=== PATIENT | female | born 1975 | race Caucasian/White ===

== ENCOUNTER 2020-05-11 14:19 | Outpatient (CLI) | payer BC, SELFPAY ==
--- NOTE | ~2020-05-11 | CT_ITS ---
EXAMINATION: CT abdomen pelvis wo/w con DATE: 05/11/2020 15:06 INDICATION: Gross hematuria TECHNIQUE: Computed tomography (CT) of the abdomen and pelvis was performed with and without 130 cc O mnipaque 350 intravenous contrast. The dose-length product was 1332.62 mGy-cm. Automated exposure con trol and iterative reconstruction technique were employed. COMPARISON: None. FINDINGS: Lung bases are unremarkable. No significant pleural or pericardial effusion. Heart size is normal. There are surgical changes of gastric bypass. No renal/ureteral stones are identified. No hyd ronephrosis. Ureters are normal in course and caliber. The liver, spleen, pancreas, adrenal glands and left kidney are unremarkable. There is a small subcen timeter hypodensity of the right kidney, most likely benign cysts. Gallbladder is distended. Nonobstr uctive bowel gas pattern. No abnormal pelvic masses or fluid collections. There are several pelvic ph leboliths. No free air or free fluid. No acute osseous abnormality. No osteolytic or osteoblastic les ions. IMPRESSION: 1. No findings to account for hematuria. No acute abdominal abnormality. Reviewed, dictated and finalized at location A.
== END 2020-05-11 14:20 | disposition home or self-care (01) ==
PROVIDERS: Visit Provider Urology
DX: R31.0 Gross hematuria (principal)
CPT/HCPCS: 74178; Q9967

== ENCOUNTER 2021-04-06 15:45 | Inpatient (IN) | payer OTHER, SELFPAY ==
[2021-04-06] VITALS (7 sets, daily range): BP systolic 97–116; BP diastolic 53–78; PULSE 73–112; RESP 16–18; TEMP 36.1–36.7; O2SAT 100; BMI 25.6
[2021-04-06 16:04] LABS: Basophils Percent Auto 0.6 % (0.2-1.2); Eosinophils Absolute Auto 0.1 K/mm3 (0-0.3); Eosinophils Percent Auto 1.4 % (0-4.4); Hematocrit 32.4 % (37.0-47.0); Hemoglobin 10.5 g/dL (12.0-15.0); Immature Granulocyte Absolute 0.01 K/mm3 (0.00-0.031); Immature Granulocyte Percent A 0.2 % (0-0.5); Lymphocytes Absolute Auto 2.71 K/mm3 (0.9-3.2); Lymphocytes Percent Auto 42.1 % (18.3-44.2); Mean Corpuscular HGB Conc 32.4 g/dl (32-36); Mean Corpuscular Hemoglobin 30.3 pg (26-34); Mean Corpuscular Volume 93.4 fl (80-100); Mean Platelet Volume 9.8 fl (7.4-10.4); Monocytes Absolute Auto 0.2 K/mm3 (0.1-0.6); Monocytes Percent Auto 3.3 % (2.6-8.5); Neutrophils Absolute Auto 3.4 K/mm3 (1.3-6.7); Neutrophils Percent Auto 52.4 % (45.5-73.1); Platelet Count Result 267 k/mm3 (150-375); Red Blood Count 3.47 M/mm3 (4.2-5.4); Red Cell Distribution Width 12.5 % (11.5-14.5); White Blood Count 6.4 K/mm3 (4.5-10.0)
[2021-04-06 16:14] LABS: INR 0.9; Prothrombin Time 12.9 Seconds (11.1-14.7)
[2021-04-06 16:15] LABS: Partial Thromboplastin Time 25.4 SECONDS (22.3-36.8)
[2021-04-06 16:49] LABS: Alanine Aminotransferase 28 U/L (4-35); Albumin Level 3.9 g/dL (3.5-5.1); Alkaline Phosphatase 60 U/L (38-126); Anion Gap 10 mmol/L (8-16); Aspartate Amino Transferase 25 U/L (14-36); Bilirubin,Total 0.1 mg/dL (0.2-1.3); Blood Urea Nitrogen 38 mg/dL (7-17); Calcium 9.2 mg/dL (8.4-10.2); Carbon Dioxide 21 mmol/L (22-30); Chloride 109 mmol/L (98-107); Estimated CRCL calculation 70 ml/min; Estimated Glomerular Filt Rate > 60; Glucose 109 mg/dL (65-105); Sodium 140 mmol/L (137-145)
[2021-04-06] MEDS: LACTATED RINGERS 1,000 ML 999 ML IV CONT (18:58)
[2021-04-06 19:35] LABS: Basophils Absolute Auto 0.1 K/mm3 (0.0-0.1); Basophils Percent Auto 0.9 % (0.2-1.2); Eosinophils Absolute Auto 0.1 K/mm3 (0-0.3); Eosinophils Percent Auto 1.7 % (0-4.4); Hemoglobin 9.4 g/dL (12.0-15.0); Immature Granulocyte Absolute 0.01 K/mm3 (0.00-0.031); Immature Granulocyte Percent A 0.2 % (0-0.5); Lymphocytes Absolute Auto 2.76 K/mm3 (0.9-3.2); Lymphocytes Percent Auto 47.3 % (18.3-44.2); Mean Corpuscular HGB Conc 32.4 g/dl (32-36); Mean Corpuscular Hemoglobin 30.3 pg (26-34); Mean Corpuscular Volume 93.5 fl (80-100); Mean Platelet Volume 9.9 fl (7.4-10.4); Monocytes Absolute Auto 0.3 K/mm3 (0.1-0.6); Neutrophils Absolute Auto 2.6 K/mm3 (1.3-6.7); Neutrophils Percent Auto 44.9 % (45.5-73.1); Platelet Count Result 226 k/mm3 (150-375); Red Cell Distribution Width 12.3 % (11.5-14.5); White Blood Count 5.8 K/mm3 (4.5-10.0)
--- NOTE | 2021-04-06 20:13 | ED.GIBLEED ---
HPI - GI Bleed General Chief complaint: GI Bleed Stated complaint: dark tarry stools Time Seen by Provider: 04/06/21 17:53 Source: patient Mode of arrival: ambulatory Limitations: no limitations History of Present Illness HPI Narrative: 46-year-old female Patient complains of dark tarry stools for about 3 days There were clots in one of them She does not have abdominal pain, she does not have diarrhea or constipation She has no history of peptic ulcer disease but she has had a gastric sleeve operation at [place] 2 years ago She does not take NSAIDs, she does not smoke, she did just get back from a wine drinking bike trip through [facility] Related Data Home Medications Medication Instructions Recorded Confirmed duloxetine 90 mg PO DAILY 04/06/21 lamotrigine [Lamictal] 100 mg PO DAILY 04/06/21 lisdexamfetamine [Vyvanse] 70 mg PO BID 04/06/21 topiramate [Topamax] 200 mg PO DAILY 04/06/21 Allergies Allergy/AdvReac Type Severity Reaction Status Date / Time No Known Allergies Allergy Verified 04/06/21 18:18 Review of Systems Review of Systems: All systems reviewed & are unremarkable except as noted in HPI and below Constitutional: Constitutional: Reports no additional constitutional complaints, Denies chills, Denies fever(s) and Denies headache(s) Eyes: Eyes: Reports no additional eye complaints and Denies change in vision ENT: Reports dizziness, Denies headache(s) and Denies sore throat Cardiovascular: Cardiovascular: Denies chest pain and Denies dyspnea Respiratory: Respiratory: Denies cough and Denies dyspnea Gastrointestinal: Gastrointestinal: Denies abdominal pain, Denies diarrhea and Denies vomiting Genitourinary: Genitourinary: Denies urinary frequency and Denies dysuria Musculoskeletal: Musculoskeletal: Denies deformity, Denies arthralgias, Denies joint swelling and Denies numbness Integumentary/Breasts: Skin/Breast: Denies rash and Denies wounds Neurologic: Denies headache(s), Denies focal weakness and Denies numbness Psychiatric: Psychiatric: Reports no additional psychiatric complaints Endocrine: Endocrine: Reports no additional endocrine complaints Hematologic/Lymphatic: Hematologic/Lymphatic: Reports no additional hematologic/lymphatic complaints Allergic/Immunologic: Allergic/Immunologic: Reports no additional allergic/immunologic complaints Exam Const: General: cooperative, no acute distress and alert Orientation/consciousness: patient oriented x3 (alert) HENMT: Head: normal to inspection, normocephalic and atraumatic Ears: external ears normal General nose exam: no epistaxis Eyes: Conjunctivae: conjunctivae normal EOM: EOMs intact bilaterally Neck: Neck: normal visual inspection, supple and no JVD Resp: Effort & Inspection: normal respiratory effort Auscultation: clear to auscultation bilaterally and other (BS =) Cardio: Rate: regular rate Rhythm: regular rhythm Heart sounds: no murmurs GI: GI Palp: Yes Soft to palpation, Yes Tenderness to palpation present (GI) (She has some slight periumbilical tenderness), No Guarding due to palpation present (GI), No Rigid due to palpation and No Rebound tenderness present Other: Dark black guaiac positive stool : General: Yes no CVA tenderness Skin: General skin exam: normal color and no rashes or lesions noted Neuro: General: patient oriented x3 (alert) and moves all extremities Speech: normal speech Extrem: General: normal to inspection and no pedal edema Psych: Affect: normal affect Course Course Emergency Course: She was slightly orthostatic, after hydration her hematocrit dropped from 32-29, start PPIs, type and screen, discussed with hospitalist with GI Vital Signs Vital signs: Vital Signs Pulse Rate 94 04/06/21 15:48 Blood Pressure 110/71 04/06/21 15:48 Temperature 36.4 C L 04/06/21 17:57 Pulse Rate 112 H 04/06/21 18:04 Respiratory Rate 17 04/06/21 17:57 Blood Pressure 97/62 L
[2021-04-06] MEDS: PANTOPRAZOLE SODIUM IV 40 MG VIAL 80 MG IV PUSH (21:10)
--- NOTE | 2021-04-06 21:22 | ADMGEN ---
This patient, Clarice Patton, was admitted to Medical Room 246-. Patient/family oriented to hospital policies and general routines including ID bracelet, bed and alarms, visiting hours, pain management, procedures, bathroom and other care routines, personal items, smoking policy, room service/diet, and visiting hours. Information on how to activate the Rapid Response Team has been discussed. Patient/Family are encouraged to report perceived risks to care and to ask questions if they do not understand what they are told or what they should do.
[2021-04-06] MEDS: SODIUM CHLORIDE 0.9% IV 1,000 ML 125 ML IV CONT (22:06)
[2021-04-07] VITALS (8 sets, daily range): BP systolic 90–101; BP diastolic 55–72; PULSE 65–75; RESP 11–20; TEMP 36.1–36.3; O2SAT 98–100
--- NOTE | 2021-04-07 00:22 | PM.IMHP ---
H&P: HPI History of Present Illness Date/Time: 04/06/21 [id number] this is a 46-year-old female patient has a history of having a gastric sleeve which was later removed due to gastritis. She then had a gastric bypass at [facility] in the past not recently. The patient stated that she has noticed dark black stools for the last day. She stated that she has never had this before. She tells me that she has never had scopes before either. She has had GERD and gastritis in the past. The patient has not been taking any NSAIDs. The patient stated that she does not drink excessively and that her last drink was on Saturday. She does occasionally drink wine. She drinks wine 1-2 days a week. Patient recently attended a [employer] event. Her initial hemoglobin was noted to be 10.5 and now it is 9.4. Her hematocrit was 32.4 and is now 29.0. I was aware that the patient had a gastric sleeve but was not aware that she had a gastric bypass. I explained that the patient needed to be consulted by GI since she has a GI bleed and is had these previous procedures. The consult was placed in the emergency room. The patient was made NPO except for ice chips and was placed on a Protonix drip and IV fluids. The patient stated that she has not had any further stool since she was admitted. The patient is being admitted to inpatient services on the date of service of 04/06/2021. Chief Complaint: Dark stool Review of Systems Review of Systems: All systems reviewed & are unremarkable except as noted in HPI and below Constitutional: Constitutional: Reports as per HPI and Reports no additional constitutional complaints Eyes: Eyes: Reports as per HPI and Reports no additional eye complaints ENT: Reports system reviewed and no additional complaints, except as documented and Reports Normal hearing present Cardiovascular: Cardiovascular: Reports no additional cardiovascular complaints Respiratory: Respiratory: Reports no additional respiratory complaints and Reports no additional respiratory complaints Gastrointestinal: Gastrointestinal: Reports as per HPI and Reports no additional gastrointestinal complaints Musculoskeletal: Musculoskeletal: Reports no additional musculoskeletal complaints Integumentary/Breasts: Skin/Breast: Reports system reviewed and no additional complaints, except as docu and Reports as per HPI Neurologic: Reports system reviewed and no additional complaints, except as documented, Reports as per HPI and Reports Normal hearing present Psychiatric: Psychiatric: Reports no additional psychiatric complaints and Reports as per HPI Endocrine: Endocrine: Reports no additional endocrine complaints Hematologic/Lymphatic: Hematologic/Lymphatic: Reports no additional hematologic/lymphatic complaints Allergic/Immunologic: Allergic/Immunologic: Reports no additional allergic/immunologic complaints [facility] Past Medical History Medical History (Updated 04/07/21 @ 00:29 by Leesa Epps NP) Depression Eating disorder Binge eating Surgical History Surgical History (Updated 04/07/21 @ 00:29 by Leesa Epps NP) H/O gastric bypass After having complications from a gastric sleeve History of partial hysterectomy Family History Family History Mother Cerebrovascular accident Diabetes mellitus Hypertension Father Prostate carcinoma Sibling Gout Social History Social History (Updated 04/07/21 @ 00:34 by Leesa Epps NP) Social History: The patient lives with her who is the durable power civil attorney for healthcare. The patient is a full code. The patient has 4 children. She works as a mental health therapist. She occasionally drinks wine maybe once or twice a week. She is a lifelong nonsmoker. Smoking status: Never smoker Alcohol intake: never Substance use: never Gender identity (if verbalized by the patient): Female Spiritual care concerns: No
[2021-04-07 03:23] LABS: Hematocrit 26.3 % (37.0-47.0); Hemoglobin 8.7 g/dL (12.0-15.0)
[2021-04-07 03:35] LABS: Alanine Aminotransferase 21 U/L (4-35); Albumin Level 2.8 g/dL (3.5-5.1); Alkaline Phosphatase 51 U/L (38-126); Anion Gap 7 mmol/L (8-16); Aspartate Amino Transferase 23 U/L (14-36); Bilirubin,Total 0.2 mg/dL (0.2-1.3); Blood Urea Nitrogen 29 mg/dL (7-17); Calcium 8.7 mg/dL (8.4-10.2); Carbon Dioxide 22 mmol/L (22-30); Chloride 112 mmol/L (98-107); Estimated CRCL calculation 63 ml/min; Estimated Glomerular Filt Rate 60; Glucose 87 mg/dL (65-105); Magnesium 1.8 mg/dL (1.6-2.3); Potassium 3.8 mmol/L (3.4-5.0); Sodium 141 mmol/L (137-145)
[2021-04-07] MEDS: SODIUM CHLORIDE 0.9% IV 1,000 ML 125 ML IV CONT (06:22)
[2021-04-07 08:11] LABS: Hematocrit 25.4 % (37.0-47.0); Hemoglobin 8.2 g/dL (12.0-15.0)
--- NOTE | 2021-04-07 11:15 | PC.NURSE ---
Patient to GI lab per wheelchair. IV saline locked.
[2021-04-07] MEDS: LACTATED RINGERS 1,000 ML 150 ML IV CONT (11:34)
--- NOTE | 2021-04-07 11:55 | WPDANESEPPF ---
Anes - Initial Pre Proc Eval Procedure: Operation Date: 04/07/21 12:30 Proposed Procedures p Esophagogastroduodenoscopy - Uzair Tejada MD Date/Time: 04/07/21 11:55 Surgeon: Jena Al MD Pre Op Diagnosis: Upper GI Bleed Patient Data Age: 46 Gender: F Height: 5 ft 8 in Weight: 76.5 kg Last Vital Signs Temp 97.4 F L 04/07/21 11:35 Pulse 71 04/07/21 11:35 Resp 18 04/07/21 11:35 BP 101/72 04/07/21 11:35 Pulse Ox 100 04/07/21 11:35 Allergies Allergy/AdvReac Type Severity Reaction Status Date / Time No Known Allergies Allergy Verified 04/07/21 11:33 Home Medications Medication Instructions Recorded Confirmed Type duloxetine 90 mg PO DAILY 04/06/21 04/06/21 History lamotrigine [Lamictal] 100 mg PO DAILY 04/06/21 04/06/21 History lisdexamfetamine [Vyvanse] 70 mg PO BID 04/06/21 04/06/21 History topiramate [Topamax] 200 mg PO DAILY 04/06/21 04/06/21 History Laboratory Tests 04/06/21 04/06/21 04/06/21 15:56 15:56 15:56 WBC 6.4 K/mm3 K/mm3 (4.5-10.0) RBC 3.47 M/mm3 L M/mm3 (4.2-5.4) Hgb 10.5 g/dL L g/dL (12.0-15.0) Hct 32.4 % L % (37.0-47.0) MCV 93.4 fl fl (80-100) MCH 30.3 pg pg (26-34) MCHC 32.4 g/dl g/dl (32-36) RDW 12.5 % % (11.5-14.5) Plt Count 267 k/mm3 k/mm3 (150-375) MPV 9.8 fl fl (7.4-10.4) Immature Gran % (Auto) 0.2 % % (0-0.5) Neut % (Auto) 52.4 % % (45.5-73.1) Lymph % (Auto) 42.1 % % (18.3-44.2) [place] % (Auto) 3.3 % % (2.6-8.5) Eos % (Auto) 1.4 % % (0-4.4) Baso % (Auto) 0.6 % % (0.2-1.2) Lymph # (Auto) 2.71 K/mm3 K/mm3 (0.9-3.2) [place] # (Auto) 0.2 K/mm3 K/mm3 (0.1-0.6) Eos # (Auto) 0.1 K/mm3 K/mm3 (0-0.3) Baso # (Auto) 0.0 K/mm3 K/mm3 (0.0-0.1) Abs Immat Gran (auto) 0.01 K/mm3 K/mm3 (0.00-0.031) Absolute Neuts (auto) 3.4 K/mm3 K/mm3 (1.3-6.7) Absolute Nucleated RBC 0.0 K/mm3 K/mm3 (0.0-0.012) Nucleated RBC % 0.0 % % (0.0-0.2) PT 12.9 Seconds Seconds (11.1-14.7) INR 0.9 APTT 25.4 SECONDS SECONDS (22.3-36.8) Sodium 140 mmol/L mmol/L (137-145) Potassium 4.0 mmol/L mmol/L (3.4-5.0) Chloride 109 mmol/L H mmol/L (98-107) Carbon Dioxide 21 mmol/L L mmol/L (22-30) Anion Gap 10 mmol/L mmol/L (8-16) BUN 38 mg/dL H mg/dL (7-17) Creatinine 0.90 mg/dL mg/dL (0.7-1.0) Estim Creat Clear Calc 70 ml/min ml/min Estimated GFR > 60 (59 - ) Glucose 109 mg/dL H mg/dL (65-105) Calcium 9.2 mg/dL mg/dL (8.4-10.2) Magnesium Total Bilirubin 0.1 mg/dL L mg/dL (0.2-1.3) AST 25 U/L U/L (14-36) ALT 28 U/L U/L (4-35) Alkaline Phosphatase 60 U/L U/L (38-126) Total Protein 6.0 g/dL L g/dL (6.3-8.2) Albumin 3.9 g/dL g/dL (3.5-5.1) TSH (Reflex) Blood Type Antibody Screen 04/06/21 04/06/21 04/07/21 15:56 19:30 03:12 WBC 5.8 K/mm3 K/mm3 (4.5-10.0) RBC 3.10 M/mm3 L M/mm3 (4.2-5.4) Hgb 9.4 g/dL L g/dL 8.7 g/dL L g/dL (12.0-15.0) (12.0-15.0) Hct 29.0 % L % 26.3 % L % (37.0-47.0) (37.0-47.0) MCV 93.5 fl fl (80-100) MCH 30.3 pg pg (26-34) MCHC 32.4 g/dl g/dl (32-36) RDW 12.3 % % (11.5-14.5) Plt Count 226 k/mm3 k/mm3 (150-375) MPV 9.9 fl fl (7.4-10.4) Immature Gran % (Auto) 0.2 % % (0-0.5) Neut % (Auto) 44.9 % L % (45.5-73.1) Lymph % (Auto) 47.3 % H % (18.3-44.2) [place] % (Auto) 5.0 % % (2.6-8.5) Eos % (Auto) 1.7 % % (0-4.4) Baso % (Auto) 0.9 % %
--- NOTE | 2021-04-07 12:28 | WPDGICN ---
Assessment and Plan Assessment and plan (1) Acute upper GI bleed: Code(s): K92.2 - Gastrointestinal hemorrhage, unspecified Status: Acute Assessment and Plan: she is npo, will proceed with urgent EGD to assess for source of bleeding start on protonix bid for now and continue to monitor for any more signs of bleeding (2) Melena: Code(s): K92.1 - Melena Status: Acute Assessment and Plan: upper gi source, EGD now (3) Acute blood loss anemia: Code(s): D62 - Acute posthemorrhagic anemia Status: Acute Assessment and Plan: transfuse if hb<7 more recommendations after egd (4) H/O gastric bypass: Code(s): Z98.84 - Bariatric surgery status Status: Inactive (5) Depression: Code(s): F32.9 - Major depressive disorder, single episode, unspecified Status: Chronic Assessment and Plan: on meds GI Consult Note Consult date/time: 04/07/21 12:28 Reason for consult: melena, GIB HPI: Clarice Patton is a 46 year old female with history of depression on meds who had gastric sleeve as bariatric surgery in 2012 but caused significant GERD symptoms, finally revised and had definitive gastric bypass in 2019 at [facility] that corrected GERD symptoms and since then did not have to take any more antireflux medication. She denies previous history of GIB. She is here with new onset of dark tarry stool, also feeling dizzy. Hb 10.5 and repeat down to 8, BUN 39 with normal creatinine, platelets and coags. Denies abominal pain or nausea. She does not remember having EGD. Denies using nsaid's Review of Systems Constitutional: Constitutional: Denies chills Eyes: Eyes: Denies blurry vision ENT: Reports Normal hearing present Cardiovascular: Cardiovascular: Denies chest pain Respiratory: Respiratory: Denies dyspnea Gastrointestinal: Gastrointestinal: Reports melena Genitourinary: Genitourinary: Denies flank pain Musculoskeletal: Musculoskeletal: Denies neck pain Integumentary/Breasts: Skin/Breast: Denies dry skin Neurologic: Denies headache(s) Psychiatric: Psychiatric: Denies behavioral changes PMFSH Past Medical History Medical History (Updated 04/07/21 @ 13:17 by Uzair Tejada MD) Acute blood loss anemia Depression Eating disorder Binge eating Melena Surgical History Surgical History (Updated 04/07/21 @ 13:17 by Uzair Tejada MD) H/O gastric bypass After having complications from a gastric sleeve History of partial hysterectomy Family History Family History Mother Cerebrovascular accident Diabetes mellitus Hypertension Father Prostate carcinoma Sibling Gout Social History Social History (Updated 04/07/21 @ 00:34 by Leesa Epps NP) Social History: The patient lives with her who is the durable power deputy county attorney for healthcare. The patient is a full code. The patient has 4 children. She works as a mental health therapist. She occasionally drinks wine maybe once or twice a week. She is a lifelong nonsmoker. Smoking status: Never smoker Alcohol intake: never Substance use: never Gender identity (if verbalized by the patient): Female Spiritual care concerns: No Meds Home Medications and Allergies Home Medications Medication Instructions Recorded Confirmed Type duloxetine 90 mg PO DAILY 04/06/21 04/06/21 History lamotrigine [Lamictal] 100 mg PO DAILY 04/06/21 04/06/21 History lisdexamfetamine [Vyvanse] 70 mg PO BID 04/06/21 04/06/21 History topiramate [Topamax] 200 mg PO DAILY 04/06/21 04/06/21 History Allergies Allergy/AdvReac Type Severity Reaction Status Date / Time No Known Allergies Allergy Verified 04/07/21 11:33 Vital Signs Vital Signs - 24 hr 04/06/21 15:48 04/06/21 15:51 04/06/21 17:57 Temperature 98.0 F 97.5 F L Pulse Rate 94 94 98 Respiratory Rate 16 17 Blood Pressure 110/71 10
--- NOTE | 2021-04-07 13:27 | PC.NURSE ---
Returned from GI Lab. Report received from ZEKE Leal.
--- NOTE | 2021-04-07 15:50 | PM.DS ---
DS: Admitting Diagnosis Admitting Diagnosis Admitting Diagnosis: GI Bleed DS: Discharge Diagnosis Discharge Diagnosis (1) Acute upper GI bleed: Code(s): K92.2 - Gastrointestinal hemorrhage, unspecified Status: Acute Assessment and Plan: Continue with Q 6 hour H&H . GI consult thank you for your recommendations. history of having severe gastritis History Gastric sleeve and gastric bypass IV fluids Protonix Transfuse as needed Trend H/H EGD done today Ulcer found in the study Follow up with gastric specialist (2) Depression: Qualifiers: Major depression recurrence: unspecified whether recurrent Psychotic features: without psychotic features Depression Type: major depressive disorder Major depression episode severity: severe Code(s): F32.9 - Major depressive disorder, single episode, unspecified Status: Chronic Assessment and Plan: Patient is NPO at this time. duloxetine and Lamictal can be resumed (3) Eating disorder: Qualifiers: Eating disorder type: unspecified eating disorder Qualified Code(s): F50.9 - Eating disorder, unspecified Code(s): F50.9 - Eating disorder, unspecified Status: Chronic Assessment and Plan: Continue Vyvanse and Topamax (4) Acute blood loss anemia: Code(s): D62 - Acute posthemorrhagic anemia Status: Acute DS: Summary Hospital Course Hospital Course: 46-year-old female with a past medical history of a gastric sleeve a gastric bypass who presented to the ED with complaints of dark tarry stools. Patient was also noted to have a down trending hemoglobin hematocrit but has not needed a blood transfusion. GI took patient down for an EGD today which shoulder gastric ulcer but no signs and of bleeding. Since EGD patient has been able to eat and has tolerated a p.o. diet. No diarrhea or signs of bleeding in ways of stool. Is recommended the patient take Protonix 40 mg twice daily. Patient did deny chest pain, shortness of breath, nausea, vomiting, abdominal pain, constipation, diarrhea, urinary dysfunction, pain or burning with urinating, headache, dizziness, confusion, falls, syncope, numbness and tingling, or lightheadedness weakness or fatigue. Status at Discharge Functional status at discharge: independent ambulation Overall status at discharge: patient is back to baseline Time Spent with Patient Time attestation: Total time spent providing and/or coordinating discharge services: Time spent: Less than 30 minutes Exam Const: General: cooperative, healthy appearing, comfortable, no acute distress, well developed, awake and Physically active Nutritional Appearance: average body habitus and well nourished Orientation/consciousness: oriented to person, oriented to place, oriented to time and patient oriented x3 Limitations: no limitations HENMT: Head: normal to inspection, No palpable skull fracture present, normocephalic and atraumatic Ears: hearing grossly normal bilaterally and external ears normal General nose exam: Normal external nose present and Normal nares present Mouth: Yes Normal oral and palatal mucosa present, Yes lip normal and Yes tongue normal Teeth and gingiva: abnormal tooth and associated gingiva and poor dentition Eyes: General: appearance normal, both eyes and all related structures Alignment and Position: alignment normal Periorbital: periorbital findings normal Eyelids: eyelids normal Conjunctivae: conjunctivae normal Sclera: sclerae normal Cornea: corneas normal Pupils: Equal, round and reactive pupils present EOM: EOMs intact bilaterally Neck: Neck: normal visual inspection, full ROM and no lymphadenopathy Chest: Chest palpation & inspection: normal inspection of the chest Resp: Effort & Inspection: normal respiratory effort Auscultation: clear to auscultation bilaterally Percussion: percussion normal Cardio: Jugular venous
[2021-04-07 16:24] LABS: Hematocrit 26.2 % (37.0-47.0); Hemoglobin 8.4 g/dL (12.0-15.0)
== END 2021-04-07 18:09 | disposition home or self-care (01) | DRG 378 ==
LOC: ANHED 20:45 → ANH2MED 04-07 08:30
PROVIDERS: Emergency Medicine; Internal Medicine Gastroenterology; Nurse Practitioner; Admitting Provider Hospitalist; Emergency Provider Emergency Medicine; PCP Nurse Practitioner; Visit Provider Internal Medicine
PROC: 0DJ08ZZ Inspection of Upper Intestinal Tract, Via Natural or Artificial Opening Endoscopic (ICD-10-PCS; CPT 43235; principal; 2021-04-07 12:30)
DX: K25.4 Chronic or unspecified gastric ulcer with hemorrhage (principal); D62 Acute posthemorrhagic anemia; Z98.84 Bariatric surgery status; F32.9 Major depressive disorder, single episode, unspecified; F50.81 Binge eating disorder; Z68.25 Body mass index [BMI] 25.0-25.9, adult
CPT/HCPCS: 36415; 80053; 83735; 84443; 85014; 85018; 85025; 85610; 85730; 86850; 86900; 86901; 87081; 88305; 96361; 96374; 99285; C9113; J7030; J7060; J7120